=== PATIENT | male | born 2005 | race African-American/Black ===

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

== ENCOUNTER 2024-08-26 08:13 | Emergency (ER) | payer OTHER, SELFPAY | END 2024-08-26 08:33 | disposition home or self-care (01) | LOC: MADERS 08:13 | DX: H66.92 Otitis media, unspecified, left ear (principal) | CPT/HCPCS: 99282 ==